=== PATIENT | female | born 1980 | race Two or more races ===

== ENCOUNTER 2022-11-26 20:13 | Emergency (ER) | payer OTHER ==
[~2022-11-26] VITALS: Ht 160 cm; Wt 90.7 kg
[2022-11-26] MEDS ORDERED: COZAAR50 MG PO (21:06)
== END 2022-11-26 23:49 | disposition home or self-care (01) ==
LOC: ER 20:13
DX: R10.32 Left lower quadrant pain (principal); N20.0 Calculus of kidney; N83.201 Unspecified ovarian cyst, right side; K76.0 Fatty (change of) liver, not elsewhere classified